=== PATIENT | female | born 1995 | race Caucasian/White ===

== ENCOUNTER 2024-11-28 23:02 | Emergency (ER) | payer MEDICAID ==
[~2024-11-28] VITALS: Ht 165.1 cm; Wt 88.9 kg
[2024-11-29] MEDS ORDERED: CYCLOBENZAPRINE 10 MG TABLET ONE (00:03)
[2024-11-29] MEDS ORDERED: IBUPROFEN 600 MG TABLET ONE (00:03)
[2024-11-29] MEDS: CYCLOBENZAPRINE 10 MG TABLET PO ONE (00:06)
[2024-11-29] MEDS: IBUPROFEN 600 MG TABLET PO ONE (00:06)
[2024-11-29] MEDS ORDERED: ONDANSETRON 4 MG TAB.RAPDIS ONE (00:27)
[2024-11-29] MEDS: ONDANSETRON 4 MG TAB.RAPDIS SL ONE (00:27)
[2024-11-29 03:12] VITALS: BP 118/73; TEMP 98.2; O2SAT 97
== END 2024-11-29 03:13 | disposition home or self-care (01) ==
LOC: ER 23:07
DX: M25.571 Pain in right ankle and joints of right foot (principal); M25.562 Pain in left knee; M54.2 Cervicalgia; W01.0XXA Fall on same level from slipping, tripping and stumbling without subsequent striking against object, initial encounter; Y93.89 Activity, other specified; Y92.89 Other specified places as the place of occurrence of the external cause; Y99.8 Other external cause status
CPT/HCPCS: 99284; 72050; 72110; 73610; 73130; 73564; Q0162